=== PATIENT | female | born 1935 | race Caucasian/White ===

== ENCOUNTER → 2018-03-02 | Outpatient (CLI) | payer MEDICARE, OTHER ==
[~2018-03-02] MED LIST: ASPIR 8181 MG PO; ATENOLOL50 MG PO; CALCIUM600 MG PO; CELEBREX200 MG PO; FUROSEMIDE40 MG PO; HYDROCODON-ACE1 EA16 PO; LEVOTHYROXINE75 MCG PO; PANTOPRAZOLE SO20 MG PO; PLAVIX75 MG PO; POTASSIUM99 M1 PO; TRAMADOL-ACETAMI1 EA PO; VYTORIN 10-401 EACH PO
[2018-03-02 10:53] LABS: CREATININE, SERUM 1.37 mg/dL (0.57-1.11)
== END ==
LOC: MRI 09:16
PROVIDERS: ATTEND Ophthalmology Ophthalmic Plastic and Reconstructive Surgery
DX: D32.0 Benign neoplasm of cerebral meninges (principal)
CPT/HCPCS: 36415; 82565; 84520

== ENCOUNTER → 2018-12-14 | Outpatient (CLI) | payer MEDICARE, OTHER ==
--- NOTE | 2018-12-14 09:56 | Diagnostic Imaging Report ---
EXAMINATION: MRI of the brain without contrast. HISTORY: Follow-up meningioma. 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 Lower extremity weakness. COMPARISON: Brain MRI 12/16/14 and 12/10/2011 TECHNIQUE: Sagittal T2; axial DWI, T2, FLAIR, T1-IR, T2 gradient echo; coronal FLAIR. IMAGE QUALITY: Adequate. FINDINGS: Extra-axial spaces: No significantly changed when accounting for the differences in technique (current study is without contrast) mass centered in the right cavernous sinus which measures about 2.3 x 3.1 x 3.1 cm (SI x AP x TV). Again the mass is extending along the medial wall of the right middle cranial fossa, nearly completely obliterates Meckel's cave, extends medially into the suprasellar cistern , right sphenoid sinus and right paraclinoid region and anteriorly into the superior orbital fissure near the orbital apex and inferior orbital fissure with extension into the right lateral extraconal space along the lateral wall of the right orbit where it is inseparable from the right lateral rectus muscle. Right lateral extraconal component is associated with mild hyperostotic changes along the right lateral orbital wall. Mass extends posteriorly into the right prepontine cistern. Mass continues to encase and narrow the right cavernous ICA which is otherwise patent. Parenchyma: 1. Again seen few scattered white matter T2 and FLAIR hyperintense foci, most likely nonspecific chronic microvascular ischemic changes. 2. Small chronic lacunar infarct in the left head of the caudate nucleus (which was acute on prior MRI of 12/16/2014). 3. No mass, hemorrhage, acute or chronic infarcts. Skull: Unremarkable. Vessels: Expected flow voids present in the major arteries and dural sinuses. Brain volume: Within normal limits for age. Ventricles: No hydrocephalus or displacement. Foramen magnum: Unremarkable. Sella: Unremarkable. Paranasal / mastoid sinuses: No significant inflammatory disease. IMPRESSION: 1. No significantly change when accounting for the differences in technique right cavernous sinus meningioma with the above-mentioned extension, continue to follow up with brain MRI without and with contrast is recommended. 2. Stable mild chronic microvascular ischemic changes. Signed by: Dr. Ruby Roth M.D. on 12/14/2018 9:53 AM
== END ==
LOC: MRI 08:33
PROVIDERS: ATTEND Internal Medicine
DX: D32.9 Benign neoplasm of meninges, unspecified (principal)
CPT/HCPCS: 70551

== ENCOUNTER 2019-09-17 12:37 | Emergency (ER) | payer MEDICARE, OTHER ==
[~2019-09-17] VITALS: Ht 157.5 cm; Wt 97.1 kg
--- NOTE | 2019-09-17 13:29 | Diagnostic Imaging Report ---
Examination: CT BRAIN WO CONTRAST History:Left eye blindness. Comparison studies: Head CT performed March 31, 2015. Brain MRI performed December 14, 2018, December 16, 2014 and December 10, 2011 Technique: Axial images were obtained from the skull base to the vertex. Coronal and sagittal images reconstructed from the axial data. Intravenous contrast: None Findings: Scalp: No abnormalities. Bones: No fractures, blastic or lytic lesions. Brain sulci: Appropriate for age. Ventricles: Normal in size and configuration. No hydrocephalus. Extra-axial space: Previously described meningioma centered in the right cavernous sinus is partially visualized on this noncontrast head CT. No acute epidural or subdural hematoma. Parenchyma: Again seen are scattered patchy areas of hypoattenuation in the periventricular and subcortical white matter, nonspecific. No masses, hemorrhage, or acute vascular insults. Sellar/suprasellar region: No abnormalities. Craniocervical junction: Patent foramen magnum. No Chiari one malformation. Incidental findings: None. Impression: 1. No new or acute intracranial abnormalities when compared to prior brain MRI performed December 14, 2018. 2. Unchanged mild chronic microvascular ischemic change. 3. Previously described meningioma centered in the right cavernous sinus is partially visualized on this noncontrast head CT. Signed by: Dr. Mariaa Slater M.D. on 09/17/2019 1:26 PM
[2019-09-17 13:39] LABS: BASOPHILS # (AUTO) 0.1 (0.0-0.1); BASOPHILS % 0.4 % (0.0-1.0); EOSINOPHILS # (AUTO) 0.2 (0.0-0.4); EOSINOPHILS % 1.2 % (0.0-6.0); HEMOGLOBIN 12.3 g/dL (12.0-16.0); LYMPHOCYTES # (AUTO) 1.6 (1.0-3.2); LYMPHOCYTES % 12.8 % (18.0-39.1); MEAN CORPUSCULAR HEMOGLOBIN 30.6 pg (28-32); MEAN CORPUSCULAR HGB CONC 32.4 g/dL (31-35); MEAN CORPUSCULAR VOLUME 94.5 fL (81-99); MONOCYTES # (AUTO) 1.2 (0.2-0.8); MONOCYTES % 9.3 % (4.4-11.3); NEUTROPHILS # (AUTO) 9.7 (2.1-6.9); NEUTROPHILS % 75.9 % (38.7-80.0); PLATELET COUNT 268 x10e3/uL (140-360); RED BLOOD COUNT 4.02 x10e6/uL (3.6-5.1); RED CELL DISTRIBUTION WIDTH 13.2 % (11.7-14.4)
[2019-09-17 13:42] LABS: CHOL/HDL RATIO 3.5 (3.0-3.6)
--- OUTSIDE RECORDS SUMMARY | 2019-09-17 14:00 | XMS REPORT | Continuity of Care Document ---
Author Author [facility] t Organization [facility] Address [address] [place] [address] Phone Unavailable Care Team Providers Care Merchandising Professor Name Role Phone System MUSICAL PERFORMER-C, Not In Provider PCP UnavailMarti Cordoba Attphys Unavailable AUGUSTO GE Attphys Unavailable Problems This patient has no known problems. Allergies, Adverse Reactions, Alerts Allergy Name Allergy Type Status Severity Reaction(s) Onset Date Inacti ve Date Treating Clinician Comments Source Adhesive Tape-Silicones Propensity to adverse reactions to drug Activ e 2017-11-20 00:00:00 Paulo [facility]ist Amoxicillin-Pot Clavulanate Propensity to adverse reactions to drug A ctive 2017-11-20 00:00:00 Paulo Meth odist Latex Propensity to adverse reactions to drug Active 2017-11-20 00:00:00 Paulo Evangelista Social History Social Habit Start Date Stop Date Quantity Comments Source Sex Assigned At Ming Evangelista Medications Ordered Medication Name Filled Medication Name Start Date Stop Da te Current Medication? Ordering Clinician Indication Dosage Frequency Signature (SIG) Comments Components Source aspirin (ECOTRIN) 81 MG enteric coated tablet 2017-11-20 14:46:5 2 Yes 81mg QD Take 81 mg by mouth daily. H steven Evangelista potassium 99 mg tablet 2017-11-20 14:46:52 Yes 1{tbl} QD Take 1 tablet by mouth daily. With fluid pill Paulo Evangelista calcium carbonate/vitamin D3 (CALCIUM 600 + D,3, ORAL) 2017-11-20 14:46:52 Yes 1{tbl} QD Take 1 tablet by mouth daily. Paulo Evangelista multivit-min/iron/folic/lutein (CENTRUM SILVER WOMEN ORAL) 2017-11-20 14:46:52 Yes 1{tbl} QD Take 1 tablet by mouth daily. Paulo Evangelista melatonin 5 mg capsule 2017-11-20 14:46:52 Yes 1{capsule} QD Take 1 capsule by mouth nightly as needed. Calderon Evangelista ezetimibe-simvastatin (VYTORIN) 10-80 mg per tablet 2017-02 14:17:24 Yes 1{tbl} QD Take 1 tablet by mouth nightly. Paulo Evangelista losartan (COZAAR) 50 MG tablet 2017-10-29 00:00:00 Yes 50mg Q.5D Take 50 mg by mouth 2 (two) times a day. Svetlana Evangelistaist levothyroxine (SYNTHROID, LEVOXYL) 75 mcg tablet 2017-10-06 00:00:00 Yes 75ug QD Take 75 mcg by mouth every morning. Paulo Evangelista traMADol-acetaminophen (ULTRACET) 37.5-325 mg per tablet 2017-10-03 00:00:00 Yes 1{tbl} Q8H Take 1 tablet by mouth every 8 ( eight) hours as needed. Paulo Evangelista furosemide (LASIX) 40 mg tablet 2017-10-02 00:00:00 Yes 40mg QD Take 40 mg by mouth daily. Paulo Evangelista celecoxib (CeleBREX) 200 MG capsule 2017-09-18 00:00:00 Yes 200mg QD Take 200 mg by mouth daily. Paulo arenas atenolol (TENORMIN) 25 MG tablet 2017-09-07 00:00:00 Yes 12.5mg QD Take 12.5 mg by mouth daily. Paulo danielle pantoprazole (PROTONIX) 40 MG EC tablet 2017-09-07 00:00:00 Yes 40mg QD Take 40 mg by mouth daily. Paulo power clopidogrel (PLAVIX) 75 mg tablet 2017-08-31 00:00:00 Yes 75mg QD Take 75 mg by mouth daily. Paulo Wright t Procedures This patient has no known procedures. Plan of Care Planned Activity Planned Date Details Comments Source Future Scheduled Test 2019-09-14 00:00:00 INFLUENZA VACCINE [code = INFLUENZA VACCINE] Paulo Evangelista Future Scheduled Test 2002 00:00:00 65+ PNEUMOCOCCAL V ACCINE (1 of 2 - PCV13) [code = 65+ PNEUMOCOCCAL VACCINE (1 of 2 - PCV13)] Paulo Evangelista Future Scheduled Test 1987-11-19 00:00:00 SHINGLES VACCINES (#1) [code = SHINGLES VACCINES (#1)] [facility] Results Test Description Test Time Test Comments Results Result Comments Source CT BRAIN WO 2019-09-17 13:24:00 [facility] [address] [address] Patient Name: MARTIN BUCKLEY MR #: [id number] : 1935 Age/Sex: 83/F Req #: [id number] Adm Physician: Ordered by: Juan Cervantes MD Report #: [id number] Location: ER Room/Bed: Procedure: [id number] CT/CT BRAIN WO Exam Date: 09/17/19 Exam Time: 1308 REPORT STATUS: Signed Examination: CT BRAIN WO CONTRAST History:Left eye blindness. Comparison studies: Head CT performed March 31, 2015. Brain MRI performed December 14, 2018, December 16, 2014 and December 10, 2011 Technique: Axial images were obtained from the skull base to the vertex. Coronal and sagittal images reconstructed from the axial data. Intravenous contrast: None Findings: Scalp: No abnormalities. Bones: No fractures, blastic or lytic lesions. Brain sulci: Appropriate for age. Ventricles: Normal in size and configuration. No hydrocephalus. Extra-axial space: Previously described meningioma centered in the right cavernous sinus is partially visualized on this noncontrast head CT. No acute epidural or subdural hematoma. Parenchyma: Again seen are scattered patchy areas of hypoattenuation in the periventricular and subcortical white matter, nonspecific. No masses, hemorrhage, or acute vascular insults. Sellar/suprasellar region: No abnormalities. Craniocervical junction: Patent foramen magnum. No Chiari one malformation. Incidental findings: None. Impression: 1. No new or acute intracranial abnormalities when compared to prior brain MRI performed December 14, 2018. 2. Unchanged mild chronic microvascular ischemic change. 3. Previously described meningioma centered in the right cavernous sinus is partially visualized on this noncontrast head CT. Signed by: Dr. Mariaa Slater M.D. on 09/17/2019 1:26 PM Dictated By: MARIAA REGALADO MD [id number] Transcribed By: ELBERT on 09/17/19 1326 COPY TO: JUAN CERVANTES MD MRI BRAIN WO 2018-12-14 09:39:00 [address] [place] [address] Patient Name: MARTIN BUCKLEY MR #: [id number] : 1935 Age/Sex: 83/F Req #: [id number] Adm Physician: Ordered by: AUGUSTO GE Report #: [id number] Location: MRI Room/Bed: Procedure: [id number] MRI/MRI BRAIN WO Exam Date: Exam Time: REPORT STATUS: Signed EXAMINATION: MRI of the brain without contrast. HISTORY: Follow-up meningioma. 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 Lower extremity weakness. COMPARISON: Brain MRI 12/16/14 and 12/10/2011 TECHNIQUE: Sagittal T2; axial DWI, T2, FLAIR, T1- IR, T2 gradient echo; coronal FLAIR. IMAGE QUALITY: Adequate. FINDINGS: Extra-axial spaces: No significantly changed when accounting for the differences in technique (current study is without contrast) mass centered in the right cavernous sinus which measures about 2.3 x 3.1 x 3.1 cm (SI x AP x TV). Again the mass is extending along the medial wall of the right middle cranial fossa, nearly completely obliterates Meckel's cave, extends medially into the suprasellar cistern , right sphenoid sinus and right paraclinoid region and anteriorly into the superior orbital fissure near the orbital apex and inferior orbital fissure with extension into the right lateral extraconal space along the lateral wall of the right orbit where it is inseparable from the right lateral rectus muscle. Right lateral extraconal component is associated with mild hyperostotic changes along the right lateral orbital wall. Mass extends posteriorly into the right prepontine cistern. Mass continues to encase and narrow the right cavernous ICA which is otherwise patent. Parenchyma: 1. Again seen few scattered white matter T2 and FLAIR hyperintense foci, most likely nonspecific chronic microvascular ischemic changes. 2. Small chronic lacunar infarct in the left head of the caudate nucleus (which was acute on prior MRI of 12/16/2014). 3. No mass, h emorrhage, acute or chronic infarcts. Skull: Unremarkable. Vessels: Expected flow voids present in the major arteries and dural sinuses. Brain volume: Within normal limits for age. Ventricles: No hydrocephalus or displacement. Foramen magnum: Unremarkable. Sella: Unremarkable. Paranasal / mastoid sinuses: No significant inflammatory disease. IMPRESSION: 1. No significantly change when accounting for the differences in technique right cavernous sinus meningioma with the above-mentioned extension, continue to follow up with brain MRI without and with contrast is recommended. 2. Stable mild chronic microvascular ischemic changes. Signed by: Dr. Karen Roth M.D. on 12/14/2018 9:53 AM Dictated By: KAREN ROTH MD 2 Transcribed By: ELBERT on 12/14/18952 COPY TO: AUGUSTO GE
--- OUTSIDE RECORDS SUMMARY | 2019-09-17 14:00 | XMS REPORT | Clinical Summary ---
Author Author [facility] Address Unknown Phone Unavailable Care Team Providers Care Chore Worker Name Role Phone System, Provider Not In LOAN OFFICER-C PCP Unavailabl e Allergies Comments Active Allergy Reactions Severity Noted Date Adhesive Tape-Silicones 11/20/2017 Amoxicillin-Pot 11/20/2017 Clavulanate Latex 11/20/2017 Medications End Date Status Medication Sig Dispensed Refills Start Date Active atenolol (TENORMIN) 25 MG Take 12.5 mg 0 08/14 tablet by mouth 8 daily. Active celecoxib (CeleBREX) 200 Take 200 mg 0 09/18 MG capsule by mouth 8 daily. Active clopidogrel (PLAVIX) 75 Take 75 mg by 0 mg tablet mouth daily. 8 Active furosemide (LASIX) 40 mg Take 40 mg by 0 10/02 tablet mouth daily. 8 Active levothyroxine (SYNTHROID, Take 75 mcg 0 09/14 LEVOXYL) 75 mcg tablet by mouth 8 every morning. Active losartan (COZAAR) 50 MG Take 50 mg by 0 tablet mouth 2 (two) 8 times a day. Active pantoprazole (PROTONIX) Take 40 mg by 0 40 MG EC tablet mouth daily. 8 Active traMADol-acetaminophen Take 1 tablet 0 01 (ULTRACET) 37.5-325 mg by mouth 8 per tablet every 8 (eight) hours as needed. Active ezetimibe-simvastatin Take 1 tablet 0 (VYTORIN) 10-80 mg per by mouth tablet nightly. Active aspirin (ECOTRIN) 81 MG Take 81 mg by 0 enteric coated tablet mouth daily. Active potassium 99 mg tablet Take 1 tablet 0 by mouth daily. With fluid pill Active calcium carbonate/vitamin Take 1 tablet 0 D3 (CALCIUM 600 + D,3, by mouth ORAL) daily. Active multivit-min/iron/folic/l Take 1 tablet 0 utein (CENTRUM SILVER by mouth WOMEN ORAL) daily. Active melatonin 5 mg capsule Take 1 0 capsule by mouth nightly as needed. Active Problems Not on file Social History Date Tobacco Use Types Packs/Day Years Used Never Assessed Sex Assigned at Date Recorded Not on file Industry Job Start Date Occupation Not on file Not on file Not on file Travel End Travel History Travel Start No recent travel history available. 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 Commercial COMMERCIAL MISC MISC xxxxxxxxx 2017- COMMERCIAL Present Medicare MEDICARE MEDICARE xxxxxxxxxxx 2002- [place], PART A AND Present [place] B xxxxxxxxx 2006- FOR LIFE Present MCR SUPPLEMENT [id number] [facility] [employer] [place] amily (Home) [place] [id number] Whitney Quiñones Third Self 1935 [id number] [employer] (Home) [place] [id number] Liability Whitney Quiñones Third Self 1935 [address] [employer] (Home) [place] [id number] Liability Advance Directives For more information, please contact: [phone] Patient Tester Regulator Explanation Type Date Recorded Advance Directives, 11/20/2017 2:41 PM Living Will and Medical Power of Qa Analyst
--- NOTE | 2019-09-17 14:10 | Emergency Department Note ---
History of Present Illnes History of Present Illness Chief Complaint: Neurological History of Present Illness This is a 83 year old female states she woke up around 0800 this mor alesia and couldn't see out of left eye called pcp who wanted her to go to er for r/o cva states dr de guzman would see her in er . Historian: Patient Arrival Mode: Car Onset (how long ago): hour(s) (2) Location: L eye Quality: Blind Severity: severe Onset quality: sudden Duration (how long): hour(s) (2) Timing of current episode: constant Progression: unchanged Chronicity: new Relieving factors: none Exacerbating factors: none Associated symptoms: Reports denies other symptoms (LEIGH ANN CERVANTES MD) Past Medical/Family History Physician Review I have reviewed the patient's past medical and family history. Any updates have been documented here. (LEIGH ANN CERVANTES MD) Past Medical History Recent Fever: No Clinical Suspicion of Infectio: No New/Unexplained Change in Ment: No Other Medical History: HIGH CHOLESTEROL, GERD, ARTHRITIS, OSTEOPOROSIS (LEIGH ANN CERVANTES MD) Social History Smoking Cessation: Never Smoker Counseling Performed: No Alcohol Use: None Any Illegal Drug Use: No (LEIGH ANN CERVANTES MD) Other Last Tetanus: UNK Any Pre-Existing Lines (PICC,: No (LEIGH ANN CERVANTES MD) Review of Systems Review of Systems Constitutional: Reports no symptoms EENTM: Reports no symptoms Cardiovascular: Reports no symptoms Respiratory: Reports no symptoms Gastrointestinal: Reports no symptoms Genitourinary: Reports no symptoms Musculoskeletal: Reports no symptoms Integumentary: Reports no symptoms Neurological: Reports no symptoms, Reports other (Vision blurry L eye) Psychological: Reports no symptoms Endocrine: Reports no symptoms Hematological/Lymphatic: Reports no symptoms (LEIGH ANN CERVANTES MD) Physical Exam Related Data Allergies: Coded Allergies: latex (Verified Allergy, Severe, SKIN TURNED RED W/BLISTERS., 10/13/10) amoxicillin trihydrate (Verified Allergy, Intermediate, RASH, 10/13/10) potassium clavulanate (Verified Allergy, Intermediate, RASH, 10/13/10) Triage Vital Signs Vital Signs Date Time Temp Pulse Resp B/P (MAP) Pulse Ox O2 Delivery O2 Flow Rate FiO2 09/17/19 12:55 99.8 78 18 116/68 97 Room Air Vital signs reviewed: Yes (LEIGH ANN CERVANTES MD) Physical Exam CONSTITUTIONAL Constitutional: Present well-developed, Present well-nourished HENT HENT: Present normocephalic, Present atraumatic, Present oropharynx clear/moist, Present nose normal HENT L/R: Present left ext ear normal, Present right ext ear normal EYES Eyes: Reports PERRL, Reports conjunctivae normal, Reports other (L eye can d iscern shapes but cannot make out letters. R eye WNL) NECK Neck: Present ROM normal PULMONARY Pulmonary: Present effort normal, Present breath sounds normal CARDIOVASCULAR Cardiovascular: Present regular rhythm, Present heart sounds normal, Present capillary refill normal, Present normal rate GASTROINTESTINAL Abdominal: Present soft, Present nontender, Present bowel sounds normal GENITOURINARY Genitourinary: Present exam deferred SKIN Skin: Present warm, Present dry MUSCULOSKELETAL Musculoskeletal: Present ROM normal NEUROLOGICAL Neurological: Present alert, Present oriented x 3, Present no gross motor or sensory deficits PSYCHOLOGICAL Psychological: Present mood/affect normal, Present judgement normal (LEIGH ANN CERVANTES MD) Results Laboratory Laboratory Laboratory Tests Test 09/17/19 13:11 (LEIGH ANN CERVANTES MD) Laboratory Laboratory Tests Test 09/17/19 13:11 White Blood Count 12.71 x10e3/uL (4.8-10.8) Red Blood Count 4.02 x10e6/uL (3.6-5.1) Hemoglobin 12.3 g/dL (12.0-16.0) Hematocrit 38.0 % (34.2-44.1) Mean Corpuscular Volume 94.5 fL (81-99) Mean Corpuscular Hemoglobin 30.6 pg (28-32) Mean Corpuscular Hemoglobin Concent 32.4 g/dL (31-35) Red Cell Distribution Width 13.2 % (11.7-14.4) Platelet Count 268 x10e3/uL (140-360) Neutrophils (%) (Auto) 75.9 % (38.7-80.0) Lymphocytes (%) (Auto) 12.8 % (18.0-39.1) Monocytes (%) (Auto) 9.3 % (4.4-11.3) Eosinophils (%) (Auto) 1.2 % (0.0-6.0) Basophils (%) (Auto) 0.4 % (0.0-1.0) Neutrophils # (Auto) 9.7 (2.1-6.9) Lymphocytes # (Auto) 1.6 (1.0-3.2) Monocytes # (Auto) 1.2 (0.2-0.8) Eosinophils # (Auto) 0.2 (0.0-0.4) Basophils # (Auto) 0.1 (0.0-0.1) Absolute Immature Granulocyte (auto 0.05 x10e3/uL (0-0.1) Sodium Level 141 mmol/L (136-145) Potassium Level 4.2 mmol/L (3.5-5.1) Chloride Level 104 mmol/L (98-107) Carbon Dioxide Level 27 mmol/L (22-29) Anion Gap 14.2 mmol/L (8-16) Blood Urea Nitrogen 26 mg/dL (7-26) Creatinine 1.33 mg/dL (0.57-1.11) Estimat Glomerular Filtration Rate 38 ML/MIN (60-) BUN/Creatinine Ratio 20 (6-25) Glucose Level 123 mg/dL (74-118) Calcium Level 9.8 mg/dL (8.4-10.2) Total Bilirubin 0.4 mg/dL (0.2-1.2) Aspartate Amino Transf (AST/SGOT) 20 IU/L (5-34) Alanine Aminotransferase (ALT/SGPT) 16 IU/L (0-55) Alkaline Phosphatase 74 IU/L (40-150) Troponin I 0.079 ng/mL (0-0.300) Total Protein 7.3 g/dL (6.5-8.1) Albumin 3.6 g/dL (3.5-5.0) Globulin 3.7 g/dL (2.3-3.5) Albumin/Globulin Ratio 1.0 (0.8-2.0) Triglycerides Level 123 MG/DL (0-149) Cholesterol Level 145 MD/DL (0-199) LDL Cholesterol 78 MG/DL (60-130) HDL Cholesterol 42 MG/DL (40-60) Cholesterol/HDL Ratio 3.5 (3.0-3.6) Lab results reviewed: Yes (DG ALBERTS DO) Imaging Imaging results reviewed: Yes Imaging Comments [facility] [address] [address] Patient Name: MARTIN BUCKLEY MR #: [id number] : 1935 Age/Sex: 83/F Req #: [id number] Adm Physician: Ordered by: Leigh Ann Cervantes MD Report #: [id number] Location: ER Room/Bed: Procedure: [id number] CT/CTA NECK Exam Date: 09/17/19 Exam Time: 1632 REPORT STATUS: Signed EXAMINATION: CT angiogram of the [place] and neck with contrast CLINICAL HISTORY: Left eye vision loss COMPARISON: Brain MRI 12/14/2018 TECHNIQUE: The head and neck was scanned utilizing a multidetector helical scanner from the thoracic inlet to the vertex after the I.V contrast administration of 150 mL of Omnipaque 300 mg . Multiplanar sagittal and coronal reconstructions were performed as well. For optimization of of anatomic evaluation, multi-planar reconstructions, maximum intensity projections, and advanced 3D off-line post-processing was obtained and performed on a dedicated stand-alone workstation under the direct supervision of the interpreting physician. Dose modulation, iterative reconstruction, and/or weight based adjustment of the mA/kV was utilized to reduce the radiation dose to as low as reasonably achievable. FINDINGS: The are no areas of abnormal density or enhancement in the brain. There is no mass, hemorrhage or extra-axial fluid collection. The CSF containing spaces are normal in size, position and configuration. CT ANGIOGRAM OF THE [place]: Right common sinus mass is partially encasing the right cavernous ICA without associated stenoses. Otherwise the bilateral internal carotid artery segments as well as the middle cerebral and anterior cerebral arteries are normal in caliber. The vertebro-basilar circulation is normal. No vascular malformation or aneurysmal dilatation is seen. The draining venous structures are normal and patent. Anatomic variation: Anterior Communicating Artery: Patent Posterior Communicating Arteries: Not well visualized Vertebral arteries: Codominant CT ANGIOGRAM OF THE NECK: If present, stenosis of the carotid bulbs is measured based on NASCET criteria i.e area of maximum stenosis compared to the cervical ICA distal to the bulb. The origin of the vessels is patent bilaterally. Wall calcified atherosclerotic plaque in the right carotid bifurcation and carotid results in mild stenoses (less than 50% per NASCET). Right Carotid Artery: Otherwise the common carotid, internal and external carotid arteries at the level of the neck are normal in caliber, and patent, no evidence of stenoses. Left carotid artery: The common carotid, internal and external carotid arteries at the level of the neck are normal in caliber, and patent, no evidence of stenoses. Vertebral Arteries: Both are normal in morphology and caliber. Both are codominant. No significant stenosis is seen. Additional findings: Partially visualized right lateral orbit extraconal mass is extending to the orbital apex, superior orbital fissure, right cavernous sinus and right prepontine cistern, consistent with known meningioma. IMPRESSION: 1. No large vessel occlusion or hemodynamically significant stenoses of the carotid or vertebral arteries in the head or neck. 2. Mild stenosis of the right carotid bulb (less than 50%). 3. 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 Signed by: Dr. Ruby Roth M.D. on 09/17/2019 6:12 PM Dictated By: RUBY ROTH MD 11 Transcribed By: ELBERT on 09/17/191811 COPY TO: LEIGH ANN CERVANTES MD~ (DG ALBERTS DO) Assessment & Plan Medical Decision Making MDM 83-year-old female presents for left-sided visual deficit. Patient states she can only be Shaped the left eye was present when she woke up this morning. She called her doctor and saw her radiographer mammographer and discharged her to come to the emergency department. She was arranged to see Dr. Phillips in cardiology for further management and follow-up. Stroke rule out to be performed in the emergency department and potentially follow up outpatient for this. (LEIGH ANN CERVANTES MD) MDM patient seen at bedside. Visual changes of left eye since this AM. CTA reveiwed with patient and unchanged of the Right meningioma since 12/2019. Admission offered to patient but politely declined. Diff Dx : carotid stenosis, CVA, optic nerve compression, retinal detachment, fugax amourosis. patient to be discharged to home. Case d/w with Dr Marina De Guzman who will see her in the AM (DG ALBERTS DO) Reassessment Reassessment time: 16:13 Reassessment Well appearing, NAD (LEIGH ANN CERVANTES MD) Reassessment time: 18:11 Reassessment I assumed care from Dr cervantes. History as follows : patient with transient unitlateral visual loss. CTA neck and head pending. (DG ALBERTS DO) Assessment & Plan Final Impression: (1) Blurred vision, left eye (DG ALBERTS DO) Depart Disposition: HOME, SELF-CARE Last Vital Signs Date Time Temp Pulse Resp B/P (MAP) Pulse Ox O2 Delivery O2 Flow Rate FiO2 09/17/19 12:55 99.8 78 18 116/68 97 Room Air (LEIGH ANN CERVANTES MD) Home Meds Reported Medications Clopidogrel Bisulfate* (PLAVIX) 75 Mg Tablet, 75 MG PO DAILY, #30 TAB 03/31/15 Calcium Carbonate (CALCIUM) 600 Mg Tablet, 620 MG PO DAILY 02/09/15 Potassium Gluconate (POTASSIUM) 99 Mg Tablet, 99 MG PO DAILY 02/09/15 Hydrocodone Bit/Acetaminophen (HYDROCODON-ACETAMINOPH 2.5-325) 1 Each Tablet, 1 TAB PO PRN 02/09/15 Levothyroxine Sodium (LEVOTHYROXINE SODIUM) 75 Mcg Tablet, 75 MCG PO DAILY, #30 TAB 02/09/15 Ezetimibe/Simvastatin (VYTORIN 10-40 MG TABLET) 1 Each Tablet, 1 TAB PO DAILY 02/09/15 Pantoprazole Sodium (PANTOPRAZOLE SODIUM) 20 Mg Tablet.dr, 40 MG PO DAILY 02/09/15 Furosemide (FUROSEMIDE) 40 Mg Tablet, 40 MG PO Daily, #30 TAB 02/09/15 Celecoxib (CELEBREX) 200 Mg Capsule, 200 MG PO DAILY 02/09/15 Tramadol/Acetaminophen (TRAMADOL-ACETAMINOPHN 37.5-325) 1 Ea Tab, 1 TAB PO DAILY, EACH 02/09/15 Atenolol (ATENOLOL) 50 Mg Tablet, 25 MG PO DAILY 02/09/15 LEIGH ANN CERVANTES MD Sep 17, 2019 14:10 DG ALBERTS DO Sep 17, 2019 18:15
[2019-09-17 14:21] LABS: ALBUMIN 3.6 g/dL (3.5-5.0); ANION GAP 14.2 mmol/L (8-16); CALCIUM 9.8 mg/dL (8.4-10.2); CREATININE, SERUM 1.33 mg/dL (0.57-1.11); POTASSIUM 4.2 mmol/L (3.5-5.1)
[2019-09-17] MEDS ORDERED: ASPIRIN 81 MG CHEW TAB PO NR (15:00)
[2019-09-17] MEDS ORDERED: SODIUM CHLORIDE 0.9% 500ML 500 ML IV ONE ×2 (15:45→16:45)
--- NOTE | 2019-09-17 18:15 | Diagnostic Imaging Report ---
EXAMINATION: CT angiogram of the [place] and neck with contrast CLINICAL HISTORY: Left eye vision loss COMPARISON: Brain MRI 12/14/2018 TECHNIQUE: The head and neck was scanned utilizing a multidetector helical scanner from the thoracic inlet to the vertex after the I.V contrast administration of 150 mL of Omnipaque 300 mg . Multiplanar sagittal and coronal reconstructions were performed as well. For optimization of of anatomic evaluation, multi-planar reconstructions, maximum intensity projections, and advanced 3D off-line post-processing was obtained and performed on a dedicated stand-alone workstation under the direct supervision of the interpreting physician. Dose modulation, iterative reconstruction, and/or weight based adjustment of the mA/kV was utilized to reduce the radiation dose to as low as reasonably achievable. FINDINGS: The are no areas of abnormal density or enhancement in the brain. There is no mass, hemorrhage or extra-axial fluid collection. The CSF containing spaces are normal in size, position and configuration. CT ANGIOGRAM OF THE [place]: Right common sinus mass is partially encasing the right cavernous ICA without associated stenoses. Otherwise the bilateral internal carotid artery segments as well as the middle cerebral and anterior cerebral arteries are normal in caliber. The vertebro-basilar circulation is normal. No vascular malformation or aneurysmal dilatation is seen. The draining venous structures are normal and patent. Anatomic variation: Anterior Communicating Artery: Patent Posterior Communicating Arteries: Not well visualized Vertebral arteries: Codominant CT ANGIOGRAM OF THE NECK: If present, stenosis of the carotid bulbs is measured based on NASCET criteria i.e area of maximum stenosis compared to the cervical ICA distal to the bulb. The origin of the vessels is patent bilaterally. Wall calcified atherosclerotic plaque in the right carotid bifurcation and carotid results in mild stenoses (less than 50% per NASCET). Right Carotid Artery: Otherwise the common carotid, internal and external carotid arteries at the level of the neck are normal in caliber, and patent, no evidence of stenoses. Left carotid artery: The common carotid, internal and external carotid arteries at the level of the neck are normal in caliber, and patent, no evidence of stenoses. Vertebral Arteries: Both are normal in morphology and caliber. Both are codominant. No significant stenosis is seen. Additional findings: Partially visualized right lateral orbit extraconal mass is extending to the orbital apex, superior orbital fissure, right cavernous sinus and right prepontine cistern, consistent with known meningioma. IMPRESSION: 1. No large vessel occlusion or hemodynamically significant stenoses of the carotid or vertebral arteries in the head or neck. 2. Mild stenosis of the right carotid bulb (less than 50%). 3. 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 Signed by: Dr. Ruby Roth M.D. on 09/17/2019 6:12 PM
[2019-09-17] MEDS ORDERED: IOPAMIDOL 370 MG/ML 200 ML INFUS..BTL INJ ONE (19:45)
[2019-09-17] MEDS ORDERED: SODIUM CHLORIDE 0.9% 100 ML ONE (19:45)
== END 2019-09-17 18:51 | disposition home or self-care (01) ==
LOC: ER 13:00
DX: H53.8 Other visual disturbances (principal); E78.00 Pure hypercholesterolemia, unspecified; K21.9 Gastro-esophageal reflux disease without esophagitis
CPT/HCPCS: 36415; 70450; 70496; 70498; 80053; 80061; 84484; 85025; 86140; 93005; 99284; J7040; J7050; Q9967